=== PATIENT | female | born 1980 | race Caucasian/White ===

== ENCOUNTER 2016-04-12 18:18 | Emergency (ER) | payer OTHER ==
[2016-04-12 18:24] VITALS: O2SAT 97
[2016-04-12 18:42] VITALS: BP 114/74; PULSE 97; O2SAT 100
[2016-04-12 19:49] LABS: BASOPHILS % (AUTO) 0.3 % (0-3); EOSINOPHILS % (AUTO) 1.7 % (0-5); Mean Corpuscular Hemoglobin 29.9 pg (27.0-35.0); NEUTROPHILS % (AUTO) 58.6 % (40-74); Platelet Count 228 bil/L (150-400)
[2016-04-12 20:10] LABS: Magnesium 1.9 mg/dL (1.6-2.6)
[2016-04-12] MEDS ORDERED: 0.9% Sodium Chloride 1,000 ML IV ONE ×2 (20:30→21:15)
[2016-04-12] MEDS ORDERED: Ondansetron 2 mg/mL 2 mL Inj ONE (20:37)
[2016-04-12 21:06] VITALS: BP_SYST 119; BP_SYST 121; BP_SYST 122; BP_DIAS 63; BP_DIAS 66; BP_DIAS 73; PULSE 95; PULSE 98; PULSE 99; O2SAT 100; O2SAT 99
--- NOTE | 2016-04-12 21:10 | ED.REPORT ---
HPI-Abd Pain F Under 40 Date of Service Apr 12, 2016 ED Provider: Nita Anderson MD Patient is a 35 year old female with a history of gastroparesis and pancreatitis who presents to the ED complaining of worsening upper abdominal for the past week. Patient states that the pain began in the RUQ, but is now more persistent in the LUQ. She describes it as a twisting stabbing pain. Patient reports "fainting" due to the pain prior to arrival, awaking on the floor. She describes it as similar to when she had pancreatitis previously. Patient reports associated nausea, vomiting, and loose stools. Patient reports decreased PO intake for the past 3-4 days and is unable to keep down any liquids. She reports typically being able to drink or consume ice chips with her gastroparesis flair ups. Her abdominal discomfort is usually in her lower abdomen and is different in quality. Patient admits to chills but denies fever. Patient has previously had a cholecystectomy. Nursing Notes Stated Complaint: ABDOMINAL PAIN, FAINTED AND HIT HEAD Chief Complaint: Female Abdominal Pain Nursing Notes Reviewed: Yes Allergies: Coded Allergies: sumatriptan (Verified Allergy, Severe, 04/12/16) Penicillins (Verified Allergy, Intermediate, 04/12/16) haloperidol (Verified Allergy, Intermediate, 04/12/16) lorazepam (Verified Allergy, Intermediate, 04/12/16) sucralfate (Verified Allergy, Intermediate, 04/12/16) naproxen (Verified Allergy, Mild, 04/12/16) General Time Seen by MD: 20:27 Chief Complaint Abdominal pain Hx Obtained From: Patient Arrived By: Walk-in Sudden in Onset?: Yes Onset Occurred: 1 week ago (worse prior to arrival) Symptom Duration: Since onset Progression since Onset: Gradually worsening Location: : Abdomen lower: Abdomen upper Quality: Painful Severity: Current: Moderate Severity: Maximum: Severe Recent Healthcare: No recent doctor visit, No recent hospitalization Similar Sx Previous: Yes Past Medical History Past Medical History Pancreatitis Gastroparesis Past Surgical History Reports: Cholecystectomy Smoking History Unknown if Ever Smoker Social History Other Social History: Good social support, Lives with children, Local resident Ambulatory Status Independent Review of Systems Review of Systems Note: + decreased PO intake Constitutional: Reports: Chills, Denies: Fever GI: Reports: Abdominal pain, Diarrhea, Nausea Complete sys rev & neg: except as marked. Neurologic: Reports: Change LOC, Syncope Physical Exam Initial Vital Signs Vital Signs (First) Date Time Temp Pulse Resp B/P Pulse Ox O2 Delivery O2 Flow Rate FiO2 04/12/16 18:42 36.9 97 114/74 100 Room Air Initial VS: Reviewed, Vital signs normal ENT: Mucous membranes moist, Conjunctiva normal, No scleral icterus Skin: Warm, Dry, No cyanosis Neurologic: Alert, Oriented, Nonfocal Psychiatric: Mood/affect normal, Behavior normal, Normal thought content General/Constitutional: Awake, Alert Respiratory / Chest: Atraumatic, Breath sounds NL, Breath sounds = bilat, No respiratory distress, No rales, No rhonchi, No wheezing Cardiovascular: Heart rate NL, Regular rhythm, Heart sounds NL, No gallop, No murmurs, No rubs Abdomen: Atraumatic, Soft, Non-tender, No guarding, No rebound Tenderness/Guarding/Rebound: Positive: Tender LUQ... (Severe), Tender epigastric Back: Atraumatic, No CVA tenderness Head / Eyes: Atraumatic, Normocephalic, PERRL, EOMI Skin: Warm, Dry Upper Extremity / MS: Atraumatic, Full range of motion Lower Extremity / Pelvis / MS: Atraumatic, Full range of motion Interpretation & Diagnostics Lab Results Interpretation Result Diagram: 04/12/16194204/12/161942 Test 04/12/16 19:43 04/12/16 21:40 White Blood Count 6.4th/mm3 (3.8-10.1) Red Blood Count 3.88mil/mm3 (3.90-5.20) Hemoglobin 11.6g/dL (12.0-15.6) Hematocrit 35.3% (35.0-46.0) Mean Corpuscular Volume 91.0fL (81-100) Mean Corpuscular Hemoglobin 29.9pg (27.0-35.0) Mean Corpuscular Hemoglobin Concent 32.9% (32.0-37.0) Red Cell Distribution Width 13.8% (12.3-15.4) Platelet Count 228bil/L (150-400) Neutrophils (%) (Auto) 58.6% (40-74) Lymphocytes (%) (Auto) 32.4% (14-46) Monocytes (%) (Auto) 7.0% (4-12) Eosinophils (%) (Auto) 1.7% (0-5) Basophils (%) (Auto) 0.3% (0-3) Sodium Level 140mEq/L (134-144) Potassium Level 3.5mEq/L (3.5-5.2) Chloride Level 103mEq/L (97-108) Carbon Dioxide Level 21mmol/L (18-29) Blood Urea Nitrogen 19mg/dL (6-20) Creatinine 0.48mg/dL (0.57-1.00) Estimat Glomerular Filtration Rate 211mL/min (>59) Glucose Level 99mg/dL (60-99) Calcium Level 9.3mg/dL (8.5-10.1) Magnesium Level 1.9mg/dL (1.6-2.6) Total Bilirubin 0.3mg/dL (0.0-1.2) Aspartate Amino Transf (AST/SGOT) 18U/L (0-50) Alanine Aminotransferase (ALT/SGPT) 29U/L (0-32) Alkaline Phosphatase 134U/L (25-150) Total Protein 7.4g/dL (6.4-8.4) Albumin 4.3g/dL (3.4-5.0) Lipase 27U/L (13-60) Hold Burr Top Tube Received (Received) Urine Color Yellow (YELLOW) Urine Appearance Clear (CLEAR,HAZY) Urine pH 6.0 (5.0-8.0) Urine Specific [place] 1.010 (1.003-1.035) Urine Protein Negativemg/dL (NEG,TRACE) Urine Glucose (UA) Negativemg/dL (NEGATIVE) Urine Ketones Negativemg/dL (NEGATIVE) Urine Occult Blood Negative (NEGATIVE) Urine Nitrite Negative (NEGATIVE) Urine Bilirubin Negative (NEGATIVE) Urine Urobilinogen Normalmg/dL (NORMAL) Urine Leukocyte Esterase Negative (NEGATIVE) Urine RBC 0-2/hpf (0-2) Urine WBC 0-5/hpf (0-5) Urine Epithelial Cells Few/hpf (NONE-MOD) Urine Crystals None seen (NONE SEEN) Urine Bacteria Few/hpf (NONE-FEW) Urine Hyaline Casts None/lpf (NONE) Urine Granular Casts None seen (NONE SEEN) Urine Waxy Casts None seen (NONE SEEN) Urine Red Blood Cell Casts None seen (NONE SEEN) Urine White Blood Cell Casts None seen (NONE SEEN) Urine Mucus Present (None Seen) Urine Trichomonas None seen (NONE SEEN) Urine Yeast None (NONE SEEN) Urinalysis Comment None Urine Culture Reflexed Not indicated ECG Interpretation ECG Interpretation: Sinus rhythm, rate is 93 Probable left atrial enlargement Time: 22:21 Interpreted by: ED physician X-Ray Abdominal Interpretation IMPRESSION: 1. Normal bowel gas pattern. 2. Hepatomegaly. Dictated by: Steve Vickers M.D. on 04/12/2016 at 22:06 Approved by: Steve Vickers M.D. on 04/12/2016 at 22:08 Interpretation / Wet Read by: Interpret - Radiologist Re-Eval/Medical Decision Med Decision/Clinical Course The patient has left-sided abdominal pain which she was concerned for pancreatitis. She has a history of gastroparesis however she says this is not feel the same. Evaluation here was unremarkable and she has not had any episodes of emesis on the emergency department. A partial list of differential diagnoses considered were obstruction, pancreatitis, gastroenteritis, peptic ulcer disease, and gastroparesis. Re-Evaluation/Progress : Time of Eval: 22:49 Patient Status: Condition improved Re-Evaluation/Progress Note: Rechecked the patient, who was informed that her labs and x-ray were normal. Patient has nausea medication but cannot keep it down. Patient states that she does not like Zofran, as it makes her gag. Patient understands and agrees with the plan to be discharged home. Discharge instructions and follow-up discussed. All questions were addressed. Return to the ED warnings given. Counseled Regarding: Diagnosis, Lab results, Need for follow-up, When/why to return to ED Discharge & Departure Primary Impression: Abdominal pain Abdominal location: unspecified location Qualified Code: R10.9 - Unspecified abdominal pain Disposition: Home Discharge Condition All VS Reviewed: Yes Condition: Stable Patient Instructions: Gastroenteritis (ED) Additional Instructions: You have no sign of pancreatitis or a significant infection. You may have a virus or it could be the start of something else, so continue a liquid diet. Continue a liquid diet through tomorrow. Seek care for any new or concerning symptoms. Referrals: Ana Lilia Amos MD (PCP) Scribe Attestation Portions of this note were transcribed by Demetris Sellers and Komal Madden. IDr. Anderson personally performed the history, physical exam and medical decision- making; I reviewed and confirmed the accuracy of the information in the transcribed note. Signed by: Demetris Sellers and Robin Colunga, 04/13/2016 and 0055. copies to: Ana Lilia Amos MD,Nita Wallace MD Apr 12, 2016 21:10 Demetris Sellers Apr 12, 2016 21:38 Komal Madden Apr 12, 2016 22:51
[2016-04-12] MEDS ORDERED: Ondansetron 2 mg/mL 2 mL Inj IVPUSH ONE ×2 (21:15→23:10)
[2016-04-12] MEDS ORDERED: HYDROmorphone 0.5 mg/0.5 mL iSecure Syringe IVPUSH ONE ×2 (21:15→23:10)
--- NOTE | 2016-04-12 22:10 | DRSVH ---
PROCEDURE: X-RAY ACUTE ABDOMINAL SERIES ([id number]) INDICATIONS: pain and vomiting TECHNIQUE: One view chest and two views of the abdomen were acquired. COMPARISON: None. FINDINGS: Surgical changes and devices: There is a right PICC line with tip in SVC. Cholecystectomy clips are n oted. There multiple surgical clips/coils in pelvis. Chest: Lungs are clear. Heart size is normal. No pleural effusions. No pneumoperitoneum. Abdomen: Bowel gas pattern is normal. No suspicious calcifications. The liver is enlarged. Bones: No suspicious bony lesions. IMPRESSION: 1. Normal bowel gas pattern. 2. Hepatomegaly. Dictated by: Steve Vickers M.D. on 04/12/2016 at 22:06 Approved by: Steve Vickers M.D. on 04/12/2016 at 22:08
[2016-04-12 22:16] LABS: APPEARANCE,URINE CLEAR (CLEAR,HAZY); COLOR,URINE YELLOW (YELLOW); OCCULT BLOOD,URINE NEGATIVE (NEGATIVE); UROBILINOGEN,URINE NORMAL (NORMAL)
[2016-04-12] MEDS: 0.9% Sodium Chloride 1,000 ML IV ONE ×2 (22:37→23:06)
[2016-04-12 23:25] VITALS: BP 108/44; PULSE 100; O2SAT 95
== END 2016-04-12 23:27 | disposition home or self-care (01) ==
LOC: SED 18:18
DX: R10.12 Left upper quadrant pain (principal); R10.13 Epigastric pain; R55 Syncope and collapse; W22.8XXA Striking against or struck by other objects, initial encounter; Y93.89 Activity, other specified; Y92.89 Other specified places as the place of occurrence of the external cause; Y99.8 Other external cause status; R11.2 Nausea with vomiting, unspecified; R19.7 Diarrhea, unspecified; Z90.49 Acquired absence of other specified parts of digestive tract; Z88.0 Allergy status to penicillin; Z88.5 Allergy status to narcotic agent; Z88.8 Allergy status to other drugs, medicaments and biological substances
CPT/HCPCS: 36415; 74022; 80053; 81000; 83690; 83735; 85025; 93005; 96361; 96374; 96375; 96376; 99285; J1170; J2405; J7030